=== PATIENT | female | born 1990 | race Caucasian/White ===

== ENCOUNTER 2018-06-07 04:20 | Emergency (ER) | payer OTHER | END 2018-06-07 05:43 | disposition home or self-care (01) | LOC: FTE 04:20 | DX: J06.9 Acute upper respiratory infection, unspecified (principal) | CPT/HCPCS: 99282; Z7502 ==

== ENCOUNTER 2019-03-01 20:43 | Emergency (ER) | payer OTHER ==
[2019-03-01] MEDS: KETOROLAC 60 MG INJ IM (21:29)
== END 2019-03-01 22:12 | disposition home or self-care (01) ==
LOC: FTE 20:43
DX: K08.89 Other specified disorders of teeth and supporting structures (principal)
CPT/HCPCS: 81025; 96372; 99284-25